=== PATIENT | female | born 1955 | race Caucasian/White ===

== ENCOUNTER → 2020-08-07 | Outpatient (CLI) | payer BC ==
[~2020-08-07] MED LIST: ASCO500C PO; BIOT25006 PO; CA C1TAB58 PO; CHOL200010 PO; IOHEXOL 180 MG/ML 10 ML VIAL. ONE; LEVO112T2 PO; OMEG1CAP38 PO; TURM500C4 PO; [UNRECOGNIZED DRUG - OTHER]; methylPREDNISolone ACETATE 40 MG/ML VIAL. ONE; methylPREDNISolone ACETATE 80 MG/ML VIAL. ONE; potassium PO
--- NOTE | 2020-08-07 09:09 | PDOC1 ---
INITIAL PAIN CONSULT DATE OF SERVICE: DOS: DATE: 08/07/20 TIME: 09:03 CHIEF COMPLAINT: Chief Complaint: Low back and bilateral lower extremity pain HISTORY OF PRESENT ILLNESS: 64-year-old female presents with history of pain low back bilateral lower extremities right greater than left for about 1 year without any specific injury or accident that she is aware of these were getting worse over time in the low b ack bilateral lower extremities radiating the posterior gluteus posterior thighs posterior calves worse on the right than the left but always present in the low back and hips occasionally in the legs and lower legs with excessive walking or standing. Patient reports is better with sitting or laying down does not awaken from sleep generally does not affect her bowel bladder control or ability to walk but after about 15 to 20 minutes of walking the pain gets to the point where she needs to sit down to rest. Patient reports she has had massage therapy as well as physical therapy in the past which were both helpful and doing exercise and stretching currently. Patient also has epidural injections many years ago which were helpful as well. Patient reports that she is taking Aleve as well as Tylenol both of which decrease the pain by about 20 to 25%. Patient reports pain is constant sharp in the low back throbbing and stabbing in the back and hips with radiating pain the lower extremities mostly in the lateral and anterior aspects of the upper thighs posterior thighs and posterior calves patient reports radiating burning at times and sometimes some cramping in the low back,mainly just aching in quality patient did have an MRI scan lumbar spine showing endplate degenerative changes L5-S1 broad-based disc intrusion L3- 4 abutting the anterior thecal sac extending in the foramina causing moderate left and mild to moderate right foraminal stenosis severe posterior facet degenerative change L4-5 with ligamentum flavum thickening tapering the canal with moderate bilateral foraminal stenosis and moderate posterior facet degenerative change L5-S1 with disc bulging without impingement on the canal but moderate right foraminal stenosis present from disc bulge abutting the exiting nerve root.. PAST MEDICAL HISTORY: PMH: Arthritis PREVIOUS SURGERIES: Past Surgical Hx: Tonsillectomy in 2013 CURRENT MEDICATIONS: Current Meds: Active Scripts Medications Dose Route/Sig Max Daily Dose Days Date Category Synthroid (Levothyroxine Sodium) 112 Mcg Tablet 1 Tab PO DAILY 08/07/20 Reported [potassium ] 550 Mg PO DAILY 08/07/20 Reported Calcium Magnesium Caplet (Ca Carb & Gluc/Mag Ox & Gluc) 1 Each Tablet 1 Each PO DAILY 08/07/20 Reported Turmeric 500 mg Capsule (Turmeric/Turmeric Root Extract) 1 Each Capsule 1 Each PO DAILY 08/07/20 Reported [b6 folic acid] 08/07/20 Reported Biotin 2,500 Mcg Capsule 5,000 Mcg PO DAILY 08/07/20 Reported [place] 3 Fish Oil Softgel ([place]-3 Fatty Acids/Fish Oil) 1 Each Capsule.dr 1 Each PO DAILY 08/07/20 Reported Vitamin D3 (Cholecalciferol (Vitamin D3)) 50 Mcg Capsule 50 Mcg PO DAILY 08/07/20 Reported Vitamin C (Ascorbic Acid) 500 Mg Capsule.er 2 Cap PO DAILY 30 08/07/20 Reported ALLERGIES; Allergies: Coded Allergies: No Known Drug Allergies (Unverified , 08/07/20) FAMILY HISTORY: Family Hx: Cancers SOCIAL HISTORY: Social Hx: Patient drinks alcohol once or twice a week does not smoke or use any illegal illicit recreational drugs, is single lives locally in [facility], works for a [employer] REVIEW OF SYSTEMS: ROS: Positive for those items mentioned in history of present illness, all systems are reviewed, otherwise negative, is complete full and well-documented on patient's chart. PHYSICAL EXAM: VS: Blood pressure is 166/84 pulse 79 respirations 18 temperature 98.1 F is 5 feet 8 inches weight is 195 pounds PE: PHYSICAL EXAMINATION: GENERAL: The patient is awake, alert, oriented, appropriate, very pleasant demeanor HEENT: Shows normocephalic, atraumatic. Extraocular movements are intact and symmetrical. Oral cavity: Mucous membranes moist and pink. Dentition is intact. NECK: Shows anterior throat supple without palpable lymphadenopathy noted. Swallow reflex symmetrical. CHEST: Shows normal on inspection. Breath sounds are clear bilaterally, no rales or rhonchi. HEART: Shows S1, S2 clear. No murmurs auscultated. ABDOMEN: Soft, nontender, nondistended, obese. No palpable organomegaly is noted. No rebound or guarding demonstrated. BACK: Shows spine grossly in the midline. Normal-appearing cervical lordotic curvature. There is slightly increased thoracic kyphosis, some flattening of the lumbar lordotic curvature. Lumbar paraspinous muscles show symmetrical on inspection, on palpation shows some moderate tenderness diffusely throughout the upper, middle and lower distribution of the paraspinous muscles bilaterally and also into the lower thoracic paraspinous musculature, firm and tender, but without specific trigger points, without radiation of pain. The patient has good rotational motion of the lumbar spine, both laterally as well as extension and flexion without significant difficulty. No tenderness over the spinous processes, sacrum or sacroiliac regions. EXTREMITIES: Lower extremities show deep tendon reflexes 2+ in the patellar and tendo calcaneus tendons. Motor exam is 5 on a scale of 5 with right dorsiflexion, extension, quadriceps and hamstring flexion and 5/5 on the left. Peripheral pulses are 1 posterior tibial. No peripheral edema is noted bilaterally. Lower extremities are warm and dry to touch, equal in color and appearance. Straight leg raise noted to be negative bilaterally. Gaenslen's an d Henrique's maneuvers are negative bilaterally as well. The patient is able to stand, stand on toes that difficulty loss of balance walks with a normal- appearing gait is not appear to favor the right or left lower extremity significantly on a short distance walk in the office today and not using any assistive device such as canes or walkers to ambulate. SKIN: Shows warm and dry, good turgor. No edema. No sores, rashes or bruising throughout. IMPRESSION: Impression: 64-year-old female with proximate 1 year history increasing pain low back bilateral lower extremities right greater than left consistent with lumbar radiculopathy MRI scan lumbar spine as noted Arthritis Plan: Options were discussed with the patient including conservative medical management continued physical therapies interventional techniques and she like to proceed vaginal techniques. We discussed a lumbar epidural steroid injection using description as well as anatomical models described procedure. Risks were discussed including but not limited to: Bleeding, infection, possibility of epidural hematoma and subsequent neurological compromise, dural puncture, headaches, spinal cord and/or nerve damage, side effects of steroid medication, and poor results regarding pain control. Patient understands wished to proceed. Patient will return to clinic in approximate 2 weeks for follow-up, was counseled as return appointment activity level, and side effects to be aware of. Procedure is lumbar epidural steroid injection under local anesthetic using sterile prep and drape at the L4-5 level using C-arm fluoroscopic guidance in both AP and lateral views medications injected is 120 mg Depo-Medrol + 10 mL preservative-free normal saline and 2 mL contrast- condition at discharge is stable patient tolerated procedure well had no complications. VASYL MCDANIEL MD Aug 07, 2020 09:09
== END | disposition home or self-care (01) ==
LOC: PNCL 08:13
PROVIDERS: ATTEND Anesthesiology
DX: M54.5 Low back pain (principal); M79.605 Pain in left leg; M79.604 Pain in right leg; Z79.899 Other long term (current) drug therapy
CPT/HCPCS: 62323; J1030; J1040; Q9965

== ENCOUNTER → 2020-11-06 | Outpatient (CLI) | payer BC ==
--- NOTE | 2020-11-06 09:23 | PDOC4 ---
PROCEDURE Procedure Patient was consented for lumbar epidural steroid injection. Risks were dis cussed including but not limited to: Bleeding, infection, possibility of epidural hematoma and subsequent neurological compromise, dural puncture, headaches, spinal cord and/or nerve damage, side effects of steroid medication, and poor results regarding pain control. Patient understands and wished to proceed. Procedure is lumbar epidural steroid injection under local anesthetic using sterile prep and drape at the L4 level using C-arm fluoroscopic guidance in both AP and lateral views medications injected is 120 mg Depo-Medrol + 10 mL preservative-free normal saline and 2 mL contrast- condition at discharge is stable patient tolerated procedure well had no complications. VASYL MCDANIEL MD Nov 06, 2020 09:23
--- NOTE | 2020-11-06 09:23 | PDOC ---
Progress Note - Pain Clinic Date of Service: DOS: DATE: 11/06/20 TIME: 09:20 Diagnosis: Dx: Lumbar radiculopathy lumbar degenerative disease lumbar spinal stenosis History or Present Illness: HPI: 65-year-old female returns follow-up status post lumbar epidural steroid action x1. Patient last seen August 07, 2020 patient did very well with about 80% improvement the pain returning now over the past few weeks in the low back and bilateral lower extremities posterior gluteus posterior lateral thigh lateral anterior thighs medial thighs patient rates as an 8 on scale 10 is worse over the past week 7-8 on average 6 its least and is a 7 today. Patient reports a stabbing aching can be burning and sharp in the low back radiating constant and unbearable at times but initially doing much better about the 5 first 5 to 6 weeks after the injection. Patient reports no new motor or sensory deficits no new bowel or bladder incontinence or other complaints. Physical Exam: VS: Blood pressure is 136/90 pulse 65 respirations 16 temperature 98.5 height 5 feet 8 inches weight 197 pounds PE: PHYSICAL EXAMINATION: GENERAL: The patient is awake, alert, oriented, appropriate, very pleasant demeanor HEENT: Shows normocephalic, atraumatic. Extraocular movements are intact and symmetrical. Oral cavity: Mucous membranes moist and pink. NECK: Shows anterior throat supple without palpable lymphadenopathy noted. Swallow reflex symmetrical. CHEST: Shows normal on inspection. Breath sounds are clear bilaterally. HEART: Shows S1, S2 clear. No murmurs auscultated. ABDOMEN: Soft, nontender, nondistended, obese. No palpable organomegaly is noted. . BACK: Shows spine grossly in the midline. Normal-appearing cervical lordotic curvature. There is slightly increased thoracic kyphosis, some minor flattening of the lumbar lordotic curvature. Lumbar paraspinous muscles show symmetrical on inspection, on palpation shows some moderate tenderness diffusely throughout the upper, middle and lower distribution of the paraspinous muscles but without specific trigger points, without radiation of pain. The patient has good rotational motion of the lumbar spine, both laterally as well as extension and flexion without significant difficulty. No tenderness over the spinous processes, sacrum or sacroiliac regions. EXTREMITIES: Lower extremities show deep tendon reflexes 2+ in the patellar and tendo calcaneus tendons. Motor exam is 5 on a scale of 5 with right dorsiflexion, extension, quadriceps and hamstring flexion and 5/5 on the left. Peripheral pulses are 1+ posterior tibial. No peripheral edema is noted bilaterally. Lower extremities are warm and dry to touch, equal in color and appearance. SKIN: Shows warm and dry, good turgor. No edema. No sores, rashes or bruising throughout. Procedure: Procedure: Options were discussed with the patient. Patient chart reviews her current medication regimen updated current review of systems updated today as well. We will proceed with a second in a series lumbar epidural steroid check today with fluoroscopic guidance. Risks were discussed including but not limited to: Bleeding, infection, possibility of epidural hematoma and subsequent neurological compromise, dural puncture, headaches, spinal cord and/or nerve damage, side effects of steroid medication, and poor results regarding pain control. Patient understands and wished to proceed. Patient will return to the clinic in approximate 2 weeks for follow-up, was counseled as to return ap pointment activity level and side effects to be aware of. Medication Injected: Med Injected: Procedure is lumbar epidural steroid injection under local anesthetic using sterile prep and drape at the L4-5 level using C-arm fluoroscopic guidance in both AP and lateral views medications injected is 120 mg Depo-Medrol + 10 mL preservative-free normal saline and 2 mL contrast- condition at discharge is stable patient tolerated procedure well had no complications. Condition at Discharge: Condition at Discharge: Condition at discharge is stable, patient tolerated the procedure well and had no complications. VASYL MCDANIEL MD Nov 06, 2020 09:23
== END | disposition home or self-care (01) ==
LOC: PNCL 08:36
PROVIDERS: ATTEND Anesthesiology
DX: M51.16 Intervertebral disc disorders with radiculopathy, lumbar region (principal); M48.061 Spinal stenosis, lumbar region without neurogenic claudication; Z79.899 Other long term (current) drug therapy
CPT/HCPCS: 62323; J1030; J1040; Q9965

== ENCOUNTER → 2021-01-31 | Outpatient (CLI) | payer BC ==
[~2021-01-31] MED LIST changes: +DOCU-153 PO; +HYDR-2761 PO; -IOHEXOL 180 MG/ML 10 ML VIAL. ONE; +METH-562 PO; +NAPR220T70 PO; -methylPREDNISolone ACETATE 40 MG/ML VIAL. ONE; -methylPREDNISolone ACETATE 80 MG/ML VIAL. ONE
[2021-01-31 13:28] LABS: BASO # 0.1 x10^3/uL (0.0-0.2); BASO % 1 % (0-3); EOS # 0.1 x10^3/uL (0.0-0.7); EOS % 1 % (0-3); HEMATOCRIT 39.7 % (36.0-47.0); HEMOGLOBIN 13.8 g/dL (12.0-15.5); LYMPH # 2.9 x10^3/uL (1.0-4.8); LYMPH % 32 % (24-48); MEAN CORPUSCULAR HEMOGLOBIN 30 pg (25-35); MEAN CORPUSCULAR HGB CONC 35 g/dL (31-37); MEAN CORPUSCULAR VOLUME 85 fL (79-100); MONO # 0.6 x10^3/uL (0.0-1.1); MONO % 7 % (0-9); NEUT # 5.4 x10^3/uL (1.8-7.7); NEUT % 60 % (31-73); PLATELET COUNT 188 x10^3/uL (140-400); RED BLOOD COUNT 4.66 x10^6/uL (3.50-5.40); RED CELL DISTRIBUTION WIDTH 13.6 % (11.5-14.5); WHITE BLOOD COUNT 9.2 x10^3/uL (4.0-11.0)
[2021-01-31 13:45] LABS: ALBUMIN/GLOBULIN RATIO 1.5 (1.0-1.7); CALCIUM 8.7 mg/dL (8.5-10.1); CREATININE 0.9 mg/dL (0.6-1.0); GFR 63.2; POTASSIUM 3.9 mmol/L (3.5-5.1); TOTAL BILIRUBIN 0.7 mg/dL (0.2-1.0); TOTAL PROTEIN 6.7 g/dL (6.4-8.2)
== END ==
LOC: SURGPAT 12:51
PROVIDERS: ATTEND Neurological Surgery
DX: Z01.812 Encounter for preprocedural laboratory examination (principal); M48.062 Spinal stenosis, lumbar region with neurogenic claudication
CPT/HCPCS: 36415; 80053; 85025; 87641

== ENCOUNTER 2021-02-06 10:04 | Observation (INO) | payer BC ==
[2021-01-31 13:08] VITALS: BP 170/90
--- NOTE | 2021-02-05 15:44 | PREOP HP ---
DATE OF SERVICE: 02/06/2021 PREOPERATIVE HISTORY AND PHYSICAL HISTORY OF PRESENT ILLNESS: The patient is a pleasant 65-year-old who has difficulty with low back pain that radiates into her buttocks, posterior thighs and stops at the knees. The left side was worse than the right side initially, but at this point, the left and right sides are equal. She says she has good days and bad days. On a good day, her pain is 6/10. On a bad day, it is 8/10. Standing in one place is most difficult for her. Heat helps her. She tries to walk every day at least a couple of miles. She had epidural steroid injections, physical therapy as well as monthly massages, which has allowed her to maintain. CURRENT MEDICATIONS: Aleve, Synthroid, vitamin C, turmeric, biotin, glucosamine, fish oil, potassium, vitamin D3. PAST MEDICAL HISTORY: Hypertension, shingles, thyroid disease. PAST SURGICAL HISTORY: Tonsillectomy. FAMILY HISTORY: Alzheimer's disease and cancer. SOCIAL HISTORY: manager analysis. . Does not smoke. Drinks alcohol 1-2 times per week. ALLERGIES: ADHESIVES. REVIEW OF SYSTEMS: A 12-point review of systems was performed and is noncontributory except that mentioned above. PHYSICAL EXAMINATION: GENERAL: Alert, pleasant, in no acute distress. HEENT: Head normocephalic, atraumatic. SKIN: Warm and dry. MUSCULOSKELETAL: Lumbar paraspinal muscle bulk is normal, restricted range of motion of the lumbar spine, [id number] tenderness of the lower lumbar spine with palpation, normal range of motion of the lower extremities bilaterally. EXTREMITIES: No clubbing, cyanosis or edema. NEUROLOGIC: Alert and oriented x 3. Normal recent and remote memory, strength is 5/5 in the bilateral lower extremities, sensory was intact to light touch in the lower extremities bilaterally. Reflexes were present and symmetric in the lower extremities, negative straight leg raising, normal gait. IMAGING: I reviewed a lumbar MRI scan from 02/2020. On that study, there is a broad-based disk protrusion at L3-4, which abuts the anterior thecal sac. Combined with hypertrophic ligament and thickened facet, this is associated with canal narrowing to about 6.5 mm at the midline. There is lateral recess narrowing bilaterally. At L4-5, there are severe degenerative changes, again with ligamentum flavum thickening and lateral recess narrowing, which is moderately severe. She does have a 3 mm anterolisthesis at L4-5 as well as a 2 mm retrolisthesis at L3-4. When she is supine on the lumbar MRI scan, there is no significant spondylolisthesis seen. ASSESSMENT AND PLAN: At this point, I feel she should consider lumbar surgery. I would decompress bilaterally both L3-4 and L4-5. I spoke with her about the rationale for surgery and the risks involved. I am concerned that in the future, she may require an instrumented lumbar fusion. At this point, I think it would be preferable for microsurgery at these levels to see how she does. I spoke with her about the surgery and the risks involved. We spoke about the expected postoperative course. She understands and would like to go ahead. AGNES FIGUEROA: Bright TID: [id number]
[2021-02-06] VITALS (10 sets, daily range): BP systolic 110–185; BP diastolic 66–88
[~2021-02-06] VITALS: Ht 172.7 cm; Wt 90.7 kg
[~2021-02-06 10:04] MED LIST changes: +BUPIVACAINE-EPI 0.5%-1:200000 MPF 30 ML VIAL. ONE; -DOCU-153 PO; +GELATIN SPONGE SIZE 100. ONE; -HYDR-2761 PO; +HYDROmorphone 2 MG/ML VIAL IVP PRN; +KETOROLAC 60 MG/2 ML VIAL. ONE; -METH-562 PO; +PROCHLORPERAZINE 10 MG/2 ML VIAL. IVP PRN; +THROMBIN TOPICAL 20,000 UNIT SPRAY.SYRN KIT TP ONE; +fentaNYL PF VIAL 100 MCG/2 ML VIAL IVP PRN
[2021-02-06] MEDS ORDERED: ONDANSETRON PF 4 MG/2 ML VIAL. ONE (10:59)
[2021-02-06] MEDS ORDERED: PROPOFOL 50 ML IV ONE ×3 (10:59→14:04)
[2021-02-06] MEDS ORDERED: DEXAMETHASONE SOD PHOS 4 MG/ML VIAL ONE ×2 (10:59→12:25)
[2021-02-06] MEDS ORDERED: PHENYLEPHRINE 10 MG/ML VIAL. ONE ×2 (10:59)
[2021-02-06] MEDS ORDERED: LIDOCAINE 2% PF 5 ML VIAL. ONE (10:59)
[2021-02-06] MEDS ORDERED: PROPOFOL 10 MG/ML (20ML) VIAL. IV ONE (10:59)
[2021-02-06] MEDS ORDERED: GLYCOPYRROLATE 1 MG/5 ML VIAL. ONE (11:00)
[2021-02-06] MEDS ORDERED: REMIFENTANIL 2 MG VIAL. IV ONE ×2 (11:00→15:28)
[2021-02-06] MEDS ORDERED: MIDAZOLAM HCL/PF 2 MG/2 ML VIAL. ONE (11:00)
[2021-02-06] MEDS: IV RINGERS,LACTATED 1000ML 1,000 ML IV SCH ×2 (11:02→16:56)
[2021-02-06] MEDS ORDERED: ROCURONIUM 50 MG/5 ML VIAL. ONE (11:07)
[2021-02-06] MEDS ORDERED: SCOPOLAMINE 1.5MG PATCH. TD ONE ×2 (11:30→15:48)
[2021-02-06] MEDS ORDERED: KETOROLAC 30 MG/ML VIAL. ONE (12:25)
[2021-02-06] MEDS ORDERED: DESFLURANE > 120 MINUTES IH ONE (12:26)
[2021-02-06] MEDS ORDERED: fentaNYL PF VIAL 100 MCG/2 ML VIAL ONE ×2 (15:45→16:40)
[2021-02-06] MEDS ORDERED: HYDROcodone/APAP 5/325MG 1 TAB TABLET PO PRN (16:00)
[2021-02-06] MEDS ORDERED: fentaNYL PF VIAL 100 MCG/2 ML VIAL IVP PRN (16:00)
[2021-02-06] MEDS ORDERED: MAG HYDROX/ALUMINUM HYD/SIMETH 30 ML ORAL.SUSP PO PRN (16:00)
[2021-02-06] MEDS ORDERED: 0.9 % SODIUM CHLORIDE 10 ML DISP.SYRIN. IV PRN (16:00)
[2021-02-06] MEDS ORDERED: MAGNESIUM HYDROXIDE 2,400 MG/30 ML ORAL.SUSP. PO PRN (16:00)
[2021-02-06] MEDS ORDERED: diphenhydrAMINE HCL 25 MG CAPSULE PO PRN (16:00)
[2021-02-06] MEDS ORDERED: ACETAMINOPHEN 325 MG TABLET. PO PRN (16:00)
[2021-02-06] MEDS ORDERED: CALCIUM CARBONATE 500 MG TAB.CHEW PO PRN (16:00)
[2021-02-06] MEDS ORDERED: NALOXONE 0.4 MG/ML VIAL. IV PRN (16:00)
[2021-02-06] MEDS ORDERED: ONDANSETRON PF 4 MG/2 ML VIAL. IVP PRN (16:00)
[2021-02-06] MEDS ORDERED: PROCHLORPERAZINE 10 MG/2 ML VIAL. ONE (16:16)
[2021-02-06] MEDS ORDERED: MORPHINE SULFATE 2 MG/ML INJ. ONE (16:16)
[2021-02-06] MEDS: MORPHINE SULFATE 2 MG/ML INJ. IVP PRN ×2 (16:29→16:51)
--- NOTE | 2021-02-06 16:35 | OP ---
DATE OF SURGERY: 02/06/2021 PREOPERATIVE DIAGNOSIS: Lumbar spinal stenosis L3-L4, L4-L5. POSTOPERATIVE DIAGNOSIS: Lumbar spinal stenosis L3-L4, L4-L5. OPERATION PERFORMED: Bilateral hemilaminotomies with decompression of the nerve root, L3-L4, L4-L5. The operation was done with EMG monitoring, SSEP monitoring, fluoroscopy, microscopic dissection. SURGEON: José Jackson M.D. OPERATIVE MACHINE DESIGN TEACHER: BEBO Allen, assisted with the surgery. She assisted with exposure of the bilateral microdecompressions of both levels as well as closure. FINDINGS: There was a bulging disc at L3-L4, but it was heavily calcified and extremely firm, and no discectomy was warranted. OPERATIVE INDICATIONS: The patient is a very pleasant 65-year-old who developed intractable back and bilateral leg pain. She had epidural steroid injections and physical therapy as well as massages, all of which did help her temporarily, but gave her no lasting relief. After evaluation, I recommended the above-mentioned surgery. She understood, she wished to go ahead. DESCRIPTION OF PROCEDURE: Under general anesthesia, she was positioned prone on the Gian table. Lumbar region prepped and draped in standard fashion. SAMMY hose and AV impulse boots were applied for DVT prophylaxis. A microscope was draped, fluoroscopy was draped into the field. Monitoring was established. Ancef 2 grams was given less than one hour prior to initiation of surgery. Using fluoroscopic guidance, a midline incision was made extending from mid L3 to mid L5, I dissected down through skin and subcutaneous tissue and I reflected the paraspinal muscles to the left. I placed self-retaining micro disc retractors and brought in the microscope, and the remainder of surgery done with microscope using microscopic technique. I burred down a generous hemilaminotomy first at L4-L5 and then trimmed away very thickened ligamentum flavum, performing a partial foraminotomy. The disc was flat, there was no evidence of compression after I fully decompressed the entire region. Hemostasis was excellent. I did use small amounts of bone wax. I then went up to L3-L4 and performed the identical operation at L3-L4. At this level, there was some disc bulging, although it did not appear to be severe; however, the disc was very firm and was at least partially calcified. I felt that no discectomy was warranted. I then went to the right side, obtained this similar exposure and again at L4-L5, I drilled a hemilaminotomy. I trimmed away ligamentum flavum. At the other levels too, I worked very close to the midline and removed much of the epidural fat which was directly posterior to the dura. At any rate, I did perform partial foraminotomy and fully decompressed this region and again at L3-L4, I fully decompressed that region in a similar fashion. At L3-L4, there were few large draining veins, which I coagulated. I did use bone wax judiciously throughout, irrigated copiously with antibiotic solution and then irrigated further. I obtained excellent hemostasis in the muscle and I closed the wound in layers with absorbable suture and the skin was closed with 4-0 subcuticular stitch. I felt the surgery went very well. CAMILA DR: Verito TID: [id number] [facility]ON HOSPITALHermelinda
[2021-02-06] MEDS: fentaNYL PF VIAL 100 MCG/2 ML VIAL IVP PRN ×2 (16:52→17:19)
--- NOTE | 2021-02-06 18:07 | NUR ---
received from recovery. she is alert and oriented x4. she has good sensation, pulses and strength bilateral lower extremities. denies any numbness and tingling. states that pain prior to surgery was when she was ambulating. dressing to back was saturated along with mod amt of sanguineous drainage on chux. cleansed with chlor prep 4x4's and abd. she states that adhesive causes welts; paper tape applied. she is rating her pain 6-7. given water denies nausea. meal ordered.
[2021-02-06] MEDS: METHOCARBAMOL 750 MG TABLET PO PRN (18:44)
[2021-02-06] MEDS: POTASSIUM CL 20MEQ D5-0.45NACL 1,000 ML IV SCH (20:26)
[2021-02-06] MEDS: DOCUSATE SODIUM 100 MG CAPSULE. PO SCH (21:50)
[2021-02-06] MEDS: NAPROXEN 250 MG TABLET PO SCH (21:50)
[2021-02-06] MEDS: HYDROcodone/APAP 5/325MG 1 TAB TABLET PO PRN (22:56)
[2021-02-07 03:25] VITALS: BP 104/59
[2021-02-07] MEDS: POTASSIUM CL 20MEQ D5-0.45NACL 1,000 ML IV SCH (05:20)
[2021-02-07] MEDS: HYDROcodone/APAP 5/325MG 1 TAB TABLET PO PRN ×2 (05:50→12:05)
[2021-02-07] MEDS ORDERED: LEVOTHYROXINE 112 MCG TABLET PO SCH (06:00)
[2021-02-07 06:03] VITALS: BP 106/62
[2021-02-07] MEDS: DOCUSATE SODIUM 100 MG CAPSULE. PO SCH (08:42)
[2021-02-07] MEDS: NAPROXEN 250 MG TABLET PO SCH (08:42)
[2021-02-07] MEDS: METHOCARBAMOL 750 MG TABLET PO PRN (08:48)
[2021-02-07] MEDS ORDERED: CALCIUM CARBONATE 500 MG TABLET PO SCH (09:00)
[2021-02-07] MEDS ORDERED: CHOLECALCIFEROL (VITAMIN D3) 1,000 UNIT TABLET PO SCH (09:00)
[2021-02-07] MEDS ORDERED: NON FORMULARY ITEM (Biotin 5,000 MCG) PO SCH (09:00)
[2021-02-07] MEDS ORDERED: ASCORBIC ACID 1,000 MG TABLET PO SCH (09:00)
[2021-02-07] MEDS ORDERED: HYDR-2761 PO (10:42)
[2021-02-07] MEDS ORDERED: METH-562 PO (10:42)
[2021-02-07] MEDS ORDERED: DOCU-153 PO (10:42)
--- NOTE | 2021-02-07 10:45 | DISCH ---
DISCHARGE INSTRUCTIONS Condition on Discharge Condition on Discharge: Stable Activity After Discharge Activity Instructions for Disc: Activity as tolerated, Avoid exertion Other activity instructions: no driving for a week Bathing Instructions: Shower-keep dressing dry, No Tub Bath until see Lifting Instructions after Dis: No heavy lifting, No pulling or pushing, Do not lift >10 pounds Diet after Discharge Additional Diet Restrictions: resume home diet Wound Incision Care Wound/Incision Care: Ice to area for comfort Other wound/incision instructi: may remove dressing in 48 hours if dry then may shower, leave steri strips Contacting the after DC Call your doctor for: Concerns you may have Follow-Up Follow up with: Dr. Youssef's nurse in 2 weeks [phone] MARIE YOUSSEF MD Feb 07, 2021 10:45
[2021-02-07 11:05] VITALS: BP 139/80
--- NOTE | 2021-02-07 11:15 | NUR ---
SW following. Discussed with RN, pt from home alone, room air, regular diet. Pt had surgery 02/06/21. Discharge order for home with self care. RN advised no SW needs.
--- NOTE | 2021-02-07 13:59 | DS ---
DATE OF DISCHARGE: 02/07/2021 DISCHARGE DIAGNOSIS: Lumbar spinal stenosis L3-4, L4-5. OPERATION PERFORMED: Bilateral hemilaminotomies with decompression of the nerve root, L3-4, L4-5. HISTORY OF PRESENT ILLNESS: The patient is a very pleasant 65-year-old who developed intractable back and bilateral leg pain. She had epidural steroid injections and physical therapy as well as massages, which did not help her significantly. She had the above-mentioned findings and I recommended lumbar surgery. She understood the surgery and the risk and the technique as well as the expected postoperative course, and wished to go ahead. HOSPITAL COURSE: She was admitted to the floor postoperatively where she has done well. She has been up ambulating in the room and in the halls. Physical therapy was initiated and instruction was given to her regarding her activities. She notes significant improvement in her lower extremity symptoms. Her pain is well controlled and she is in good condition to discharge home. DISCHARGE MEDICATIONS: She will resume her medications per the MRAD. DISCHARGE INSTRUCTIONS: She was instructed regarding incision care, activity restrictions and expectations for the next several weeks. She will follow up in our office in 2 weeks. She understands to call with any questions or concerns. AGNES DR: Bright TID: [id number]
--- NOTE | 2021-02-07 14:42 | NUR ---
Discharge instructions given to pt at 1310. Pt verbalized understanding. Dressing to back changed. Instructed pt on changing dressing if it becomes saturated. PT verbalized understanding. Pt discharged home in wheelchair via transport at 1405.
== END 2021-02-07 14:05 | disposition home or self-care (01) ==
LOC: SURG 10:04 → 4 SOUTHEST 15:53
PROVIDERS: ADMIT Neurological Surgery; ATTEND Neurological Surgery
DX: M48.061 Spinal stenosis, lumbar region without neurogenic claudication (principal); I10 Essential (primary) hypertension; B02.9 Zoster without complications; E07.9 Disorder of thyroid, unspecified; Z98.890 Other specified postprocedural states; Z82.0 Family history of epilepsy and other diseases of the nervous system
CPT/HCPCS: 63047; 63048; 97116; 97162; 97530; A4213; A4364; A4930; A6254; A6258; G0378; G0379; J0690; J0780; J1100; J1885; J2250; J2270; J2370; J2405; J2704; J3010; J3490; J7120; 76000; A4222; A4452; A4657

== ENCOUNTER 2021-04-05 07:19 | Outpatient (CLI) | payer BC ==
[~2021-04-05] VITALS: Ht 172.7 cm; Wt 87.7 kg
[~2021-04-05 07:19] MED LIST changes: -BUPIVACAINE-EPI 0.5%-1:200000 MPF 30 ML VIAL. ONE; +DOCU-148 PO; -GELATIN SPONGE SIZE 100. ONE; +HYDR-2761 PO; -HYDROmorphone 2 MG/ML VIAL IVP PRN; -KETOROLAC 60 MG/2 ML VIAL. ONE; +METH-562 PO; -PROCHLORPERAZINE 10 MG/2 ML VIAL. IVP PRN; -THROMBIN TOPICAL 20,000 UNIT SPRAY.SYRN KIT TP ONE; -fentaNYL PF VIAL 100 MCG/2 ML VIAL IVP PRN
[2021-04-05] MEDS ORDERED: LIDOCAINE WITH 8.4% SOD BICARB 3 ML DISP.SYRIN. ONE (08:06)
[2021-04-05] MEDS ORDERED: LEVO-101 PO (08:11)
[2021-04-05 08:24] VITALS: BP 147/90
[2021-04-05 08:35] VITALS: BP 167/96
[2021-04-05 08:45] VITALS: BP 158/98
[2021-04-05 08:50] VITALS: BP 155/104
[2021-04-05 08:59] VITALS: BP 156/104
[2021-04-05] MEDS ORDERED: LIDOCAINE WITH 8.4% SOD BICARB 3 ML DISP.SYRIN. IJ ONE (09:00)
--- NOTE | 2021-04-05 09:17 | NUR ---
pt A&O x3. dressing on lower back is clean and dry. no drainage. discussed how to clean draining site. d/c instructions given , questions answered. no sedation given- pt ambulated off unit w/o problem
--- NOTE | 2021-04-05 16:36 | RAD ---
Procedure: CT-guided aspiration, posterior lumbar fluid collection Clinical Indication: Posterior lumbar fluid collection, aspirated for culture Consent: The procedure was explained in its entirety to the patient or the patients designated repre sentative by a member of the treatment team, including a discussion of the risks, benefits and common ly accepted alternatives to the procedure, as well as the expected consequences of no therapy whatsoe elo. Discussion of the risks included, but was not limited to, those that are most frequent and tho se that are rare but possibly severe or life-threatening, as well as the possibility of unforeseen co mplications. Discussion: The patient was brought to the CT scanner and placed in the prone position. A timeout pro cedure was performed. CT imaging demonstrated small fluid collection immediately underlying a lumbar surgical scar. 1% lidocaine was administered for local anesthesia. Under intermittent CT guidance a 5 [place] sheathed needle was advanced into this collection. 3 cc of serosanguineous fluid was aspirate d. This was sent for culture. Notably the collection appears to be smaller than on recent MRI imaging . Sterile dressings were applied. IMPRESSION: Decreasing lumbar fluid collection. Aspiration yields only 3 cc of serosanguineous fluid which was sent for culture. CT DOSING PQRS STATEMENT: One or more of the following individualized dose reduction techniques were utilized for this examinat ion: 1. Automated exposure control 2. Adjustment of the mA and/or kV according to patient size 3. Use of iterative reconstruction technique Electronically signed by: Pedro Rowan MD (04/05/2021 4:34 PM) [id number]
== END 2021-04-05 09:20 | disposition home or self-care (01) ==
LOC: INTRAD 07:19
PROVIDERS: ATTEND Neurological Surgery
DX: M53.86 Other specified dorsopathies, lumbar region (principal); M46.26 Osteomyelitis of vertebra, lumbar region; I10 Essential (primary) hypertension; E03.9 Hypothyroidism, unspecified; M19.90 Unspecified osteoarthritis, unspecified site; Z98.890 Other specified postprocedural states
CPT/HCPCS: 10009; 87071; 87075; C1892; J3490; 10005